=== PATIENT | male | born 1960 | race Caucasian/White ===

== ENCOUNTER → 2024-11-03 08:33 | Outpatient (CLI) | payer OTHER, SELFPAY ==
[2024-11-03 08:56] LABS: Add Manual Diff / Slide Review NO; Basophils Absolute Auto 100 /uL (0-100); Basophils Percent Auto 1.4 % (0-2); Eosinophils Absolute Auto 400 /uL (0-450); Eosinophils Percent Auto 5.1 % (2-4); Hematocrit 42.7 % (41-53); Hemoglobin 14.5 g/dL (13.5-17.5); Lymphocytes Absolute Auto 2000 /uL (1100-4500); Lymphocytes Percent Auto 25.9 % (25-40); Mean Corpuscular HGB Conc 34.1 % (30-36); Mean Corpuscular Hemoglobin 29.5 PG (26-34); Mean Corpuscular Volume 86.6 fL (80-100); Monocytes Absolute Auto 500 /uL (0-900); Monocytes Percent Auto 6.6 % (3-14); Neutrophils Absolute Auto 4700 /uL (1500-7000); Platelet Count 208 X10^3/uL (150-400); Red Blood Cell Count 4.93 X10^6/uL (4.5-5.9); White Blood Cell Count 7.7 X10^3/uL (4.5-11.0)
[2024-11-03 09:18] LABS: Alanine Aminotransferase 27 IU/L (<50); Albumin 4.3 g/dL (3.5-5.0); Albumin Globulin Ratio 1.7 (1.0-2.8); Alkaline Phosphatase 101 U/L (38-126); Aspartate Aminotransferase 30 IU/L (17-59); BUN Creatinine Ratio 16.7 (6-22); Bilirubin Total 0.7 mg/dL (0.2-1.3); Blood Urea Nitrogen 16 mg/dL (9-20); Calcium 9.4 mg/dL (8.4-10.2); Carbon Dioxide 24 mmol/L (22-32); Chloride 95 mmol/L (98-107); Cholesterol 165 mg/dL (140-199); Estimated Glomerular Filt Rate > 60 mL/min (>60); Globulin 2.6 g/dL (1.7-4.1); Glucose 127 mg/dL (70-99); HDL Cholesterol 36 mg/dL (40-60); HEMOLYSIS 19 (0-50); LDL Cholesterol Calculated 86 mg/dL (<100); Potassium 4.6 mmol/L (3.4-5.1); Sodium 129 mmol/L (137-145); Total Protein 6.9 g/dL (6.3-8.2); Triglycerides 214 mg/dL (35-150)
[2024-11-08 13:14] LABS: Osmolality, Serum 274 mOsmol/kg (280-301)
== END ==
PROVIDERS: PCP Family Medicine; Referring Provider Family Medicine; Visit Provider Family Medicine
DX: E78.00 Pure hypercholesterolemia, unspecified (principal); I10 Essential (primary) hypertension; E87.1 Hypo-osmolality and hyponatremia
CPT/HCPCS: 36415; 80053; 80061; 83930; 85025

== ENCOUNTER → 2024-11-06 10:35 | Outpatient (CLI) | payer OTHER, SELFPAY ==
[2024-11-08 13:14] LABS: Osmolality Urine 396 mOsmol/kg (.)
== END ==
PROVIDERS: PCP Family Medicine; Referring Provider Family Medicine; Visit Provider Family Medicine
DX: E87.1 Hypo-osmolality and hyponatremia (principal)
CPT/HCPCS: 83935

== ENCOUNTER → 2025-02-12 08:45 | Outpatient (CLI) | payer OTHER, SELFPAY ==
[2025-02-12 09:44] LABS: Hemoglobin A1C% w Est Avg Glu 5.9 % (4.0-6.0)
[2025-02-12 10:08] LABS: Blood Urea Nitrogen 12 mg/dL (9-20); Calcium 9.1 mg/dL (8.4-10.2); Carbon Dioxide 24 mmol/L (22-32); Chloride 106 mmol/L (98-107); Estimated Glomerular Filt Rate > 60 mL/min (>60); Glucose 111 mg/dL (70-99); HEMOLYSIS 43 (0-50); Potassium 4.8 mmol/L (3.4-5.1); Sodium 137 mmol/L (137-145)
== END ==
PROVIDERS: PCP Family Medicine; Referring Provider Family Medicine; Visit Provider Family Medicine
DX: R73.01 Impaired fasting glucose (principal); I10 Essential (primary) hypertension; E78.00 Pure hypercholesterolemia, unspecified; E87.1 Hypo-osmolality and hyponatremia
CPT/HCPCS: 36415; 80048; 83036

== ENCOUNTER → 2025-02-28 09:09 | Outpatient (CLI) | payer OTHER, SELFPAY | PROVIDERS: PCP Family Medicine; Referring Provider Family Medicine; Visit Provider Family Medicine | DX: Z12.5 Encounter for screening for malignant neoplasm of prostate (principal) | CPT/HCPCS: 36415; G0103 ==

== ENCOUNTER 2025-04-23 09:51 | Day surgery (SDC) | payer OTHER, SELFPAY ==
[2025-04-17 11:51] VITALS: BMI 31.4
--- NOTE | 2025-04-23 | PATH_ITS ---
[facility] Accession Number: [id number] No. of containers..02 Tissue . 01 Material submitted: . PART A: colon - HEPATIC FLEXURE PART B: rectum - RECTUM . 01 Diagnosis: Part A: HEPATIC FLEXURE: Tubular adenoma. . Part B: RECTUM: Tubular adenoma. [facility] 04/26/2025 1518 Local . 01 Electronically signed: . Law Cruz MD, Pathologist NPI- [id number] . 01 Gross description: . A. Received in formalin with two identifiers and hepatic flexure are multiple fuller, soft tissue fragments aggregating to 1.4 x 0.8 x 0.5 cm. Filtered and entirely submitted in A1. . B. Received in formalin with two identifiers and rectum is a single fuller, soft tissue fragment 0.5 cm in greatest dimension submitted entirely in B1. ([id number]) /JIE 04/26/2025 1518 Local . 01 Pathologist provided ICD-10: D12.3, D12.8 . 01 CPT . 067280, 911797 Performed at: [address] [id number] MD Law Cruz MD Phone: [phone]
[2025-04-23] MEDS: LACTATED RINGERS 1,000 ML 42 ML IV (10:30)
[2025-04-23 10:32] VITALS: BP 164/92; PULSE 63; RESP 18; TEMP 36.4; O2SAT 96
--- NOTE | 2025-04-23 10:45 | PM.HP.IH.1 ---
History of Present Illness History of Present Illness Date Patient Seen: 04/23/25 Chief complaint: SDC Narrative: Need for colorectal cancer screening. Last procedure over 10 years ago. May have had history of colon polyps. [facility] Medical History (Updated 04/17/25 @ 11:49 by Jenny Salas RN) GERD (gastroesophageal reflux disease) Stroke (2021) Surgical History (Updated 08/18/24 @ 06:30 by Ailyn Camejo MA) [place] teeth removed History of hernia repair Social History Smoking Status: Former smoker alcohol intake: current Meds Home Medications and Allergies Home Medications ?Medication ?Instructions ?Recorded ?Confirmed ?Type fluticasone propionate 50 1 spray intranasal BID PRN allergy 09/26/24 04/23/25 Rx mcg/actuation nasal symptoms #16 grams spray,suspension (Flonase Allergy Relief) aspirin 81 mg tablet 81 mg PO DAILY 11/29/24 04/23/25 History atorvastatin 40 mg tablet 40 mg PO BEDTIME Cholesterol #90 12/06/24 04/23/25 Rx tabs lisinopril 40 mg tablet 40 mg PO DAILY Blood Pressure #90 12/06/24 04/23/25 Rx tabs omeprazole 40 mg capsule,delayed 40 mg PO DAILY #90 caps 12/06/24 04/23/25 Rx release carvedilol 25 mg tablet 25 mg PO BID #180 tabs 01/01/25 04/23/25 Rx meloxicam 15 mg tablet 15 mg PO DAILY #90 tabs 02/28/25 04/23/25 Rx spironolactone 50 mg tablet 50 mg PO DAILY #3 tabs 02/28/25 04/23/25 Rx spironolactone 50 mg tablet 50 mg PO QAM #90 tabs 02/28/25 02/28/25 Rx tamsulosin 0.4 mg capsule 0.4 mg PO BEDTIME #90 caps 02/28/25 04/23/25 Rx amlodipine 2.5 mg tablet 2.5 mg PO DAILY #90 tabs 03/19/25 04/23/25 Rx Allergies Allergy/AdvReac Type Severity Reaction Status Date / Time Sulfa (Sulfonamide Allergy Mild Rash Verified 04/23/25 10:18 Antibiotics) Exam Vital Signs (past 8 hours): - 04/23/25 10:32 Temperature 97.6 F Pulse Rate 63 Respiratory Rate 18 Blood Pressure 164/92 H Pulse Oximetry 96 Oxygen Delivery Method Room Air Oxygen Delivery Method Room Air Narrative Exam Narrative: Oropharynx free of lesions Chest clear to auscultation percussion Cardiac exam reveals no S3 or murmur Assessment & Plan Assessment & Plan narrative: Need for colorectal cancer screening and may have had a history of colon polyps risks benefits alternatives to colonoscopy have been discussed. Time-Based Coding :: [TOTAL MINUTES] spent with patient and on the chart (including review of chart, obtaining history, exam, reviewing outside data, placing orders, documenting exam and treatment plan, and counseling patient) on [DATE]. [employer] Document charge(s): No
--- NOTE | 2025-04-23 10:46 | PM.OP.COLON ---
Operative Date/Time/Diagnoses Date of procedure: 04/23/25 Time of procedure: 11:18 Pre-op diagnosis: Need for colorectal cancer screening possible history of polyps Post-op diagnosis: same Procedure & Clinicians Study performed: Colonoscopy Same procedure(s) as scheduled: Yes Indications: Need for colorectal cancer screening Surgeon: Bessy Harvey Anesthesia Type: MAC +/- Procedure Notes Procedure in detail: After informed consent was obtained the patient was placed in left lateral decubitus position. The video colonoscope was placed the rectum slowly advanced cecum. Preparation was good. On slow withdrawal mucosa was carefully examined. The scope was removed. The patient tolerated procedure well. Blood loss none Complications none Sedation mac Findings 1. 1.5 x 1.5 cm polyp in the hepatic flexure. This was cold snared in 2 portions and completely removed and retrieved. 2. 6 mm sessile polyp in the rectum removed with hot snare and retrieved. 3. Otherwise negative colonoscopy to cecum Will be in touch the patient regarding pathology. He should have follow-up colonoscopy in 5 years Estimated Blood Loss: 0 Complications: none
[2025-04-23 11:19] VITALS: BP 84/50; PULSE 53; RESP 13; TEMP 36.6; O2SAT 95
[2025-04-23 11:25] VITALS: BP 88/53; PULSE 50; RESP 15; O2SAT 96
[2025-04-23 11:31] VITALS: BP 102/58; PULSE 53; RESP 20; TEMP 36.4; O2SAT 97
== END 2025-04-23 11:48 | disposition home or self-care (01) ==
PROVIDERS: PCP Family Medicine; Referring Provider Family Medicine; Visit Provider Internal Medicine Gastroenterology
PROC: 0DJD8ZZ Inspection of Lower Intestinal Tract, Via Natural or Artificial Opening Endoscopic (ICD-10-PCS; CPT 45378; principal; 2025-04-23 11:00)
DX: Z12.11 Encounter for screening for malignant neoplasm of colon (principal); D12.3 Benign neoplasm of transverse colon; D12.8 Benign neoplasm of rectum
CPT/HCPCS: 45385; J2704; J7120